=== PATIENT | female | born 1970 | race Caucasian/White ===

== ENCOUNTER 2020-06-29 21:05 | Inpatient (IN) | payer MEDICARE, MEDICAID ==
[~2020-06-29] VITALS: Ht 182.9 cm; Wt 105.1 kg
[~2020-06-29 21:05] MED LIST: EPOE10005 SC; ESCI20TA10 PO; GABA300C PO; LEVO25TA4 PO; LEVO300T4 PO; LIOT5TAB11 PO; MIDO2.5T PO; MIRT-34 PO; NOVOLOG; SODI650T PO
[2020-06-29] MEDS ORDERED: ATOR20TA86 PO (22:11)
[2020-06-29] MEDS ORDERED: ACET-2065 PO (22:11)
[2020-06-29] MEDS ORDERED: FOLI1TAB39 PO (22:11)
--- NOTE | 2020-06-29 22:16 | NUR ---
patient arrived to ED via gurney from outside facility. Patient complaining of pain in R upper chest and generalized pain from prior surgeries. crying during assessment due to home situation and new ESRD with dialysis. Patient states she does not have a lot of support from friends or family and does not have enough money to pay for some of her medications. Patient in NAD. R upper chest catheter is CDI, no abnormalities with site other than c/o pain and "feels like soemthing is moving inside". She states she was only able to get 30 minutes of dialysis today due to catheter complications. she does also state that she becomes SOB on exertion but unable to pinpoint if this is from accumulated fluid or respiratory gandara. patient frequently crying while resting in bed. A&Ox4, good historian and requires supplemental O2 due to holding breath during crying episodes.
--- NOTE | 2020-06-29 22:20 | NUR ---
late entry due to patient care - patient states that [facility] wanted to do CTA testing but notified her of risks with her kidney function. CTA ordered here by Dr. Robert. Dr Robert to bedside to discuss CTA with patient.
--- NOTE | 2020-06-29 22:22 | NUR ---
WAITING ON REQUIRED IV FOR CTA.
[2020-06-29] MEDS ORDERED: ONDANSETRON 2MG/ML, 2ML IVPush ONE (22:30)
--- NOTE | 2020-06-29 22:39 | NUR ---
additional IV placed in RAC. patient stated that she did not want an IV in AC at first. first IV unsuccessful. Patient declined IV on L arm due to surgery tomorrow. Patient then agreed to IV in RAC but with placing arm in position to safely and successfully place IV, patient started yelling "hurry it hurts!". Patient has scarring about AC and states "i have a metal dipak in my arm. i cant twist it this way". No force was used by RN. Patient was able to hold arm in position to place IV on own. IV placed successfully.
[2020-06-29] MEDS ORDERED: HYDROmorphone 1 MG/ML, 1ML INJ ONE ×2 (22:45→23:43)
[2020-06-29] MEDS ORDERED: ONDANSETRON 2MG/ML, 2ML ONE (22:45)
[2020-06-29] MEDS: HYDROmorphone 2 MG/ML, 1ML IVPush PRN ×2 (22:49→23:46)
[2020-06-29] MEDS ORDERED: OMNIPAQUE 350 MG/ML, 75ML BOTTLE ONE (23:10)
--- NOTE | 2020-06-29 23:55 | NUR ---
pt medicated per aug, provided snacks for comfort, informed she has only until midnight to eat, nad, denies additional questions or needs at this time, wctm.
[2020-06-30] MEDS ORDERED: ONDANSETRON 2MG/ML, 2ML IVPush PRN (02:00)
[2020-06-30] MEDS ORDERED: morphine SULFATE 10 MG/ML, 1ML IVPush PRN (02:00)
[2020-06-30] MEDS ORDERED: BISACODYL 10 MG SUPP PR PRN (02:00)
[2020-06-30] MEDS ORDERED: hydrALAzine 20 MG/ML, 1ML IVPush PRN (02:00)
[2020-06-30] MEDS ORDERED: DOCUSATE 100 MG CAPSULE PO PRN (02:00)
[2020-06-30] MEDS: MIDODRINE 2.5 MG TABLET PO SCH ×4 (02:00→20:20)
[2020-06-30] MEDS ORDERED: POLYETHYLENE GLYCOL 17 GM PACKET PO PRN (02:00)
[2020-06-30] MEDS ORDERED: PROMETHAZINE 25 MG/ML, 1ML IM PRN (02:00)
[2020-06-30] MEDS ORDERED: ONDANSETRON ODT 4 MG PO PRN (02:00)
[2020-06-30 02:21] VITALS: BP 120/63
[2020-06-30] MEDS: OXYcodone IR 5MG TABLET PO PRN (02:45)
[2020-06-30 05:27] LABS: TROPONIN I < 0.015 ng/mL (0.000-0.045)
[2020-06-30] MEDS: HYDROmorphone 1 MG/ML, 1ML INJ IV PRN ×4 (06:33→20:21)
[2020-06-30 07:15] VITALS: BP 133/83
[2020-06-30] MEDS: INSULIN LISPRO 100 UNITS/ML, PEN SQ-INSULIN SCH ×4 (07:17→21:32)
[2020-06-30 08:34] LABS: TROPONIN I < 0.015 ng/mL (0.000-0.045)
[2020-06-30] MEDS: LIOTHYRONINE 5 MCG TABLET PO SCH (08:42)
[2020-06-30] MEDS: LEVOTHYROXINE 150 MCG TABLET PO SCH (08:43)
[2020-06-30] MEDS: LEVOTHYROXINE 25 MCG TABLET PO SCH (08:43)
[2020-06-30] MEDS: MIRTAZAPINE 30 MG TABLET PO SCH (08:43)
[2020-06-30 09:28] LABS: ANION GAP 12 mmol/L (5-15); CALCIUM 8.6 mg/dL (8.5-10.1); CHLORIDE 104 mmol/L (98-107); CREATININE 5.51 mg/dL (0.55-1.02)
[2020-06-30] MEDS ORDERED: CHLORHEXIDINE 15 ML UDC MM ONE (10:00)
[2020-06-30] MEDS ORDERED: HEPARIN 1,000 UNITS/ML, 10ML IV ONE (11:12)
[2020-06-30] MEDS ORDERED: BUPIVACAINE/PF-EPI 0.5% 1:200K INFIL ONE (11:12)
[2020-06-30] MEDS ORDERED: HEPARIN 1,000 UNITS/ML, 10ML DIALYCATH ONE (11:55)
[2020-06-30] MEDS ORDERED: LABETALOL 5MG/ML, 20ML IV PRN (12:30)
[2020-06-30] MEDS ORDERED: DIPHENHYDRAMINE 50 MG/ML, 1ML IVPush PRN (12:30)
[2020-06-30] MEDS ORDERED: FENTANYL PF 100 MCG/2ML IV PRN (12:30)
[2020-06-30] MEDS ORDERED: ACETAMINOPHEN 325 MG TABLET PO PRN (12:30)
[2020-06-30] MEDS ORDERED: EPHEDRINE 50 MG/ML, 1ML IVPush PRN (12:30)
[2020-06-30] MEDS ORDERED: METOCLOPRAMIDE 5 MG/ML, 2ML IVPush PRN (12:30)
[2020-06-30] MEDS ORDERED: LORazepam 2 MG/ML, 1ML IVPush PRN (12:30)
[2020-06-30] MEDS ORDERED: hydrALAzine 20 MG/ML, 1ML IV PRN (12:30)
[2020-06-30] MEDS ORDERED: HALOPERIDOL 5 MG/ML IV PRN (12:30)
[2020-06-30] MEDS ORDERED: EPHEDRINE 50 MG/ML, 1ML IM PRN (12:30)
[2020-06-30] MEDS ORDERED: HYDROmorphone 1 MG/ML, 1ML INJ IVPush PRN (12:30)
[2020-06-30] MEDS ORDERED: KETOROLAC 30 MG/1 ML IVPush PRN (12:30)
[2020-06-30] MEDS ORDERED: ALBUTEROL SULFATE 2.5 MG/3 ML NPPB PRN (12:30)
[2020-06-30] MEDS ORDERED: MIDAZOLAM 1 MG/ML, 2ML IV PRN (12:30)
[2020-06-30] MEDS ORDERED: DIAZEPAM 5 MG/ML, 2ML IVPush PRN (12:30)
[2020-06-30 14:36] VITALS: BP 143/83
[2020-06-30 19:41] VITALS: BP 151/80
[2020-06-30] MEDS: ATORVASTATIN 20 MG TABLET PO SCH (20:20)
[2020-06-30] MEDS ORDERED: INSULIN LISPRO 100 UNIT/ML, 3ML VIAL SQ-INSULIN ONE (22:00)
[2020-07-01] VITALS (8 sets, daily range): BP systolic 108–172; BP diastolic 60–82
[2020-07-01] MEDS: HYDROmorphone 1 MG/ML, 1ML INJ IV PRN ×6 (00:08→20:40)
[2020-07-01 05:17] LABS: MICROSCOPIC AUTO
[2020-07-01 06:24] LABS: BASOPHILS % (AUTO) 0 % (0-1); EOSINOPHILS % (AUTO) 0 % (1-7); LYMPHOCYTES % (AUTO) 9 % (22-44); MEAN CORPUSCULAR HEMOGLOBIN 32.6 pg (27.0-34.8); MEAN CORPUSCULAR HGB CONC 33.5 g/dL (32.4-35.8); MEAN PLATELET VOLUME 8.2 fL (7.4-10.4); MONOCYTES % (AUTO) 6 % (2-9); NEUTROPHILS % (AUTO) 85 % (42-75); PLATELET COUNT 180 x10^3/uL (130-400); RED BLOOD COUNT 2.85 x10^6/uL (3.82-5.3); RED CELL DISTRIBUTION WIDTH 17.6 % (9.6-15.2)
[2020-07-01 06:32] LABS: MD NO
[2020-07-01 06:35] LABS: ALBUMIN 3.2 g/dL (3.4-5.0); ANION GAP 13 mmol/L (5-15); CALCIUM 8.1 mg/dL (8.5-10.1); CHLORIDE 102 mmol/L (98-107)
[2020-07-01 07:07] LABS: ALANINE AMINOTRANSFERASE 17 U/L (12-78); ALKALINE PHOSPHATASE 135 U/L (45-117); BILIRUBIN,TOTAL 0.2 mg/dL (0.2-1.0); CHOL/HDL RATIO 6.5; CHOLESTEROL, TOTAL 285 mg/dL (140-239); CREATININE 5.87 mg/dL (0.55-1.02); HDL CHOL % 15 % (28-40); HDL CHOLESTEROL (DIRECT) 44 mg/dL (40-60); TOTAL PROTEIN 7.9 g/dL (6.4-8.2); TRIGLYCERIDES 593 mg/dL (50-200)
[2020-07-01] MEDS: LEVOTHYROXINE 25 MCG TABLET PO SCH (07:34)
[2020-07-01] MEDS: MIRTAZAPINE 30 MG TABLET PO SCH (07:34)
[2020-07-01] MEDS: LEVOTHYROXINE 150 MCG TABLET PO SCH (07:35)
[2020-07-01] MEDS: MIDODRINE 2.5 MG TABLET PO SCH ×3 (07:35→20:40)
[2020-07-01] MEDS: LIOTHYRONINE 5 MCG TABLET PO SCH (07:35)
[2020-07-01] MEDS: ACETAMINOPHEN 325 MG TABLET PO PRN ×2 (07:36→15:20)
[2020-07-01] MEDS: INSULIN LISPRO 100 UNITS/ML, PEN SQ-INSULIN SCH ×4 (07:41→20:42)
[2020-07-01] MEDS ORDERED: MULTIVITAMIN 1 TABLET PO SCH (18:00)
[2020-07-01] MEDS: ATORVASTATIN 20 MG TABLET PO SCH (20:40)
[2020-07-02 00:15] VITALS: BP 132/79
[2020-07-02] MEDS: HYDROmorphone 1 MG/ML, 1ML INJ IV PRN ×2 (00:32→06:26)
[2020-07-02 05:13] LABS: BASOPHILS % (AUTO) 1 % (0-1); EOSINOPHILS % (AUTO) 2 % (1-7); LYMPHOCYTES % (AUTO) 25 % (22-44); MD NO; MEAN CORPUSCULAR HEMOGLOBIN 32.5 pg (27.0-34.8); MEAN CORPUSCULAR HGB CONC 33.7 g/dL (32.4-35.8); MONOCYTES % (AUTO) 5 % (2-9); NEUTROPHILS % (AUTO) 68 % (42-75); PLATELET COUNT 172 x10^3/uL (130-400); RED BLOOD COUNT 2.67 x10^6/uL (3.82-5.3); RED CELL DISTRIBUTION WIDTH 17.8 % (9.6-15.2)
[2020-07-02 05:21] LABS: ALANINE AMINOTRANSFERASE 11 U/L (12-78); ALBUMIN 3.1 g/dL (3.4-5.0); ANION GAP 9 mmol/L (5-15); CALCIUM 8.3 mg/dL (8.5-10.1); CHLORIDE 106 mmol/L (98-107); CREATININE 4.43 mg/dL (0.55-1.02)
[2020-07-02 05:24] LABS: ALKALINE PHOSPHATASE 126 U/L (45-117); BILIRUBIN,TOTAL 0.2 mg/dL (0.2-1.0); TOTAL PROTEIN 7.3 g/dL (6.4-8.2)
[2020-07-02 07:07] VITALS: BP 135/84
[2020-07-02] MEDS: LEVOTHYROXINE 25 MCG TABLET PO SCH (07:32)
[2020-07-02] MEDS: INSULIN LISPRO 100 UNITS/ML, PEN SQ-INSULIN SCH ×4 (07:32→21:00)
[2020-07-02] MEDS: MIRTAZAPINE 30 MG TABLET PO SCH (07:33)
[2020-07-02] MEDS: MIDODRINE 2.5 MG TABLET PO SCH ×3 (07:33→20:26)
[2020-07-02] MEDS: LIOTHYRONINE 5 MCG TABLET PO SCH (07:33)
[2020-07-02] MEDS: LEVOTHYROXINE 150 MCG TABLET PO SCH (07:34)
[2020-07-02] MEDS: ACETAMINOPHEN 325 MG TABLET PO PRN ×3 (09:51→20:25)
[2020-07-02] MEDS: OXYcodone IR 5MG TABLET PO PRN ×3 (09:51→21:15)
[2020-07-02 12:15] VITALS: BP 123/61
[2020-07-02 12:45] LABS: RAPID INFLUENZA A Negative (Negative); RAPID INFLUENZA B Negative (Negative)
[2020-07-02] MEDS: LACTOBACILLUS CHEW TABLET PO SCH ×3 (13:00→20:25)
[2020-07-02 18:03] LABS: MICROSCOPIC AUTO
[2020-07-02] MEDS: ATORVASTATIN 20 MG TABLET PO SCH (20:24)
[2020-07-03 02:34] VITALS: BP 125/79
[2020-07-03] MEDS: OXYcodone IR 5MG TABLET PO PRN ×2 (05:35→09:59)
[2020-07-03 06:04] LABS: BASOPHILS % (AUTO) 1 % (0-1); EOSINOPHILS % (AUTO) 3 % (1-7); LYMPHOCYTES % (AUTO) 24 % (22-44); MEAN CORPUSCULAR HEMOGLOBIN 34.1 pg (27.0-34.8); MEAN PLATELET VOLUME 7.8 fL (7.4-10.4); MONOCYTES % (AUTO) 5 % (2-9); NEUTROPHILS % (AUTO) 68 % (42-75); PLATELET COUNT 201 x10^3/uL (130-400); RED BLOOD COUNT 2.63 x10^6/uL (3.82-5.3); RED CELL DISTRIBUTION WIDTH 17.8 % (9.6-15.2)
[2020-07-03 06:09] LABS: CHLORIDE 106 mmol/L (98-107)
[2020-07-03 06:19] LABS: ALANINE AMINOTRANSFERASE 13 U/L (12-78); ALBUMIN 2.9 g/dL (3.4-5.0); ALKALINE PHOSPHATASE 131 U/L (45-117); ANION GAP 9 mmol/L (5-15); BILIRUBIN,TOTAL 0.2 mg/dL (0.2-1.0); CREATININE 4.85 mg/dL (0.55-1.02)
[2020-07-03 06:24] LABS: MD NO
[2020-07-03 08:09] VITALS: BP 149/85
[2020-07-03] MEDS: LEVOTHYROXINE 25 MCG TABLET PO SCH (09:00)
[2020-07-03] MEDS: MIDODRINE 2.5 MG TABLET PO SCH (09:00)
[2020-07-03] MEDS: MIRTAZAPINE 30 MG TABLET PO SCH (09:58)
[2020-07-03] MEDS: LEVOTHYROXINE 150 MCG TABLET PO SCH (09:58)
[2020-07-03] MEDS: LACTOBACILLUS CHEW TABLET PO SCH (09:59)
[2020-07-03] MEDS: LIOTHYRONINE 5 MCG TABLET PO SCH (09:59)
[2020-07-03] MEDS: INSULIN LISPRO 100 UNITS/ML, PEN SQ-INSULIN SCH ×2 (10:00→11:56)
[2020-07-03 13:16] VITALS: BP 135/81
== END 2020-07-03 14:26 | disposition home or self-care (01) | DRG 673 ==
LOC: ED 06-30 01:02 → EDIP 06-30 01:18 → 4WST 06-30 02:18
PROVIDERS: ADMIT Internal Medicine; ATTEND Internal Medicine
PROC: 02HV33Z Insertion of Infusion Device into Superior Vena Cava, Percutaneous Approach (ICD-10-PCS; 2020-06-30)
PROC: B5181ZA Fluoroscopy of Superior Vena Cava using Low Osmolar Contrast, Guidance (ICD-10-PCS; 2020-06-30)
PROC: 05PYX3Z Removal of Infusion Device from Upper Vein, External Approach (ICD-10-PCS; 2020-06-30)
PROC: 031C0ZF Bypass Left Radial Artery to Lower Arm Vein, Open Approach (ICD-10-PCS; principal; 2020-06-30 11:30)
PROC: 5A1D70Z Performance of Urinary Filtration, Intermittent, Less than 6 Hours Per Day (ICD-10-PCS; 2020-06-30 11:30)
DX: T82.41XA Breakdown (mechanical) of vascular dialysis catheter, initial encounter (principal); N18.6 End stage renal disease; I50.22 Chronic systolic (congestive) heart failure; D63.1 Anemia in chronic kidney disease; E03.9 Hypothyroidism, unspecified; E11.22 Type 2 diabetes mellitus with diabetic chronic kidney disease; E66.9 Obesity, unspecified; F32.9 Major depressive disorder, single episode, unspecified; E78.5 Hyperlipidemia, unspecified; I95.89 Other hypotension; Z20.822 Contact with and (suspected) exposure to COVID-19; Y71.2 Prosthetic and other implants, materials and accessory cardiovascular devices associated with adverse incidents; Y92.89 Other specified places as the place of occurrence of the external cause; Z68.31 Body mass index [BMI] 31.0-31.9, adult; Z76.5 Malingerer [conscious simulation]; Z79.4 Long term (current) use of insulin; Z82.3 Family history of stroke; Z90.710 Acquired absence of both cervix and uterus; Z99.2 Dependence on renal dialysis; Z88.1 Allergy status to other antibiotic agents; Z88.8 Allergy status to other drugs, medicaments and biological substances; Z88.5 Allergy status to narcotic agent; Z90.722 Acquired absence of ovaries, bilateral; Z90.49 Acquired absence of other specified parts of digestive tract; Z98.49 Cataract extraction status, unspecified eye
CPT/HCPCS: 36415; 71046; 71275; 77001; 80048; 80053; 80061; 81001; 82947; 82962; 83036; 83735; 84100; 84443; 84484; 85025; 85610; 85730; 86705; 86706; 87340; 87400; 90935; 93005; 93306; 93356; 96374; 96375; 96376; G0378; J0171; J0690; J1100; J1170; J1644; J2250; J2405; J2704; J2720; J3010; Q9967; C1751; J1815; J2440; U0003